=== PATIENT | male | born 1995 | race Caucasian/White ===

== ENCOUNTER 2016-12-25 08:14 | Emergency (ER) | payer MEDICAID ==
[~2016-12-25] VITALS: Ht 175.3 cm; Wt 85.0 kg
[2016-12-25 08:17] VITALS: BP 132/86
[2016-12-25] MEDS ORDERED: FAMOTIDINE 20MG TABLET PO ONE (08:30)
[2016-12-25] MEDS ORDERED: DIPHENHYDRAMINE 25MG CAPSULE PO ONE (08:30)
== END 2016-12-25 09:18 | disposition home or self-care (01) ==
LOC: ER 08:26
DX: L50.9 Urticaria, unspecified (principal)
CPT/HCPCS: 99283; Q0163